=== PATIENT | female | born 1980 | race Caucasian/White ===

== ENCOUNTER 2018-09-11 01:06 | Outpatient (CLI) | payer BC, SELFPAY ==
--- NOTE | 2018-09-11 16:08 | DI.MAMMO_ITS ---
SYMPTOM/DIAGNOSIS: SCREENING, Z12.31, HEALTH MAINTENANCE, Z00.8, BASELINE MAMMOGRAMS: Mammograms were interpreted according to the usual protocol including computer analysis with CAD system, tomosynthesis and C view imaging. This is a baseline examination. The breasts are composed of scattered fibroglandular densities, Breast density, Category B. No suspicious masses or suspicious microcalcifications are seen. IMPRESSION: Category 1B, negative mammogram. Yearly screening mammography is recommended. [facility] ASSESSMENT OF FINDINGS: Negative. Category 1. Patient will receive a letter notifying them of these results. BI-RADS category B. There are scattered areas of fibroglandular density.
== END 2018-09-11 01:26 ==
PROVIDERS: PCP Specialist/Technologist Athletic Trainer; Visit Provider Physician Assistant Medical
DX: Z12.31 Encounter for screening mammogram for malignant neoplasm of breast (principal)
CPT/HCPCS: 77063; 77067

== ENCOUNTER 2018-09-18 08:31 | Outpatient (REF) | payer BC, SELFPAY ==
[2018-09-18 22:14] LABS: ALT 29 U/L (12-78); AST 19 U/L (15-37); Albumin 3.9 g/dL (3.4-5.0); Alkaline Phosphatase 57 U/L (46-116); Anion Gap 9.5 mmol/L (3-11); BUN 11 mg/dL (7-18); Bilirubin, Total 0.3 mg/dL (0.2-1.0); CO2 24.5 mmol/L (21.0-32.0); CREATININE 0.86 mg/dL (0.55-1.02); Calcium 8.7 mg/dL (8.5-10.1); Chloride 104 mmol/L (98-107); Cholesterol 232 mg/dL (50-200); Glucose 95 mg/dL (70-100); HDL Cholesterol 41 mg/dL (40-60); LDL CHOLESTEROL 175 mg/dL (<100); Potassium 4.7 mmol/L (3.5-5.1); Sodium 138 mmol/L (136-145); Triglyceride 73 mg/dL (30-150)
[2018-09-20 09:29] LABS: HIV-1/2 Ag & Ab Screen Negative (NEGAT)
== END 2018-09-18 08:51 ==
LOC: NCHCN 08:31
PROVIDERS: PCP Specialist/Technologist Athletic Trainer; Visit Provider Physician Assistant Medical
DX: Z00.00 Encounter for general adult medical examination without abnormal findings (principal); Z13.228 Encounter for screening for other metabolic disorders; Z13.220 Encounter for screening for lipoid disorders; Z11.4 Encounter for screening for human immunodeficiency virus [HIV]
CPT/HCPCS: 80053; 80061; 83721; 87389

== ENCOUNTER 2018-10-03 00:49 | Outpatient (CLI) | payer BC, SELFPAY ==
--- NOTE | 2018-10-03 18:00 | SATEXT_ITS ---
Assessment: Shayy presents for nutritional counseling for hyperlipidemia. She reports that she has a fairly healthful diet, but she does like sweets and she states her portion sizes may be too large. She is physically active generally. She had been going to the gym on most days up until recently when she got out of the habit of it. She verbalizes that she would like start going to the gym again. She is 63 and 247 lbs which gives her a BMI of 41 kg/m2 consistent with class 3 obesity. Nutritional Diagnosis: Altered nutrition related laboratory value as evidenced by diagnosis of hyperlipidemia. Class 3 obesity as evidenced by BMI of 41 kg/m2. Intervention: Acknowledged her excellent efforts at eating healthfully and at being physically active. Discussed the importance of including the use of weights in a weight management physical activity program to help restore the muscle that is naturally lost with again. We also reviewed portion sizes of the healthy foods that she eats that would lead to weight reduction. We reviewed the DASH eating plan and how she can incorporate it into her daily life. We also talked about alternative foods for her sweet tooth which could also be consistent with a heart healthy nutrition therapy. Provided written materials. Monitoring and Evaluation: 1. Shayy will self monitor her progress and will evaluate her nutrition care plan and adjust as needed. 2. Shayy has my contact information and will follow up with me as needed with any questions or concerns regarding her nutrition therapy. Total time spent face to face: 40 minutes Thank you for the referral.
== END 2018-10-03 01:09 ==
PROVIDERS: PCP Specialist/Technologist Athletic Trainer; Visit Provider Dietitian, Registered
DX: E78.5 Hyperlipidemia, unspecified (principal); Z71.3 Dietary counseling and surveillance
CPT/HCPCS: 97802

== ENCOUNTER 2019-09-09 15:01 | Outpatient (REF) | payer BC, SELFPAY ==
[2019-09-09 22:15] LABS: Anion Gap 11.6 mmol/L (3-11); BUN 10 mg/dL (7-18); CO2 25.4 mmol/L (21.0-32.0); CREATININE 0.78 mg/dL (0.55-1.02); Calcium 9.1 mg/dL (8.5-10.1); Chloride 103 mmol/L (98-107); Glucose 81 mg/dL (74-106); Potassium 4.6 mmol/L (3.5-5.1); Sodium 140 mmol/L (136-145)
[2019-09-09 22:39] LABS: Calculated LDL 199 mg/dL; Cholesterol 263 mg/dL (<200); HDL Cholesterol 38 mg/dL (40-60); Triglyceride 133 mg/dL (<150)
[2019-09-11 13:50] LABS: HIV-1/2 Ag & Ab Screen Negative (Negative)
== END 2019-09-09 15:21 ==
LOC: NCHCN 15:01
PROVIDERS: PCP Specialist/Technologist Athletic Trainer; Visit Provider Physician Assistant Medical
DX: Z00.00 Encounter for general adult medical examination without abnormal findings (principal); E78.5 Hyperlipidemia, unspecified; Z11.4 Encounter for screening for human immunodeficiency virus [HIV]
CPT/HCPCS: 80048; 80061; 87389

== ENCOUNTER 2019-10-08 00:34 | Outpatient (CLI) | payer BC, SELFPAY ==
--- NOTE | 2019-10-08 17:30 | DI.MAMMO_ITS ---
EXAM: MG MAMMO SCREENING CLINICAL HISTORY: SCREENING, HEALTH MAINTENANCE EXAM Z00.8. TECHNIQUE: Full field digital CC and MLO mammographic images were obtained with 3D tomosynthesis and utilizing computer aided detection (CAD). COMPARISON: 2017 FINDINGS: Breast Density - Category B - Scattered areas of fibroglandular density Masses/Architectural Distortion: None seen. Microcalcifications: No suspicious pleomorphic-type calcifications are seen. Skin Thickening/Nipple Retraction: None. Axilla: Unremarkable. IMPRESSION: 1. BI-RADS category 1, negative. No significant interval change with no specific features of maligna ncy noted. 2. Unless there is more urgent need, screening mammography is recommended, as per [employer] guidelines. BI-RADS Cat 1 - Negative Breast Density - Category B - Scattered areas of fibroglandular density A negative radiographic report should not delay biopsy if a dominant or clinically suspicious mass is present. Up to ten percent of cancers are not identified on mammography. A negative report may reinforce clinical impression. Adenosis and dense breasts may obscure an underlying neoplasm. False positive reports average 6 to 10%. Patient will receive a letter notifying them of these results.
== END 2019-10-08 00:54 ==
PROVIDERS: PCP Specialist/Technologist Athletic Trainer; Visit Provider Physician Assistant Medical
DX: Z00.00 Encounter for general adult medical examination without abnormal findings (principal); Z12.31 Encounter for screening mammogram for malignant neoplasm of breast
CPT/HCPCS: 77063; 77067

== ENCOUNTER 2019-12-19 08:14 | Outpatient (REF) | payer BC, SELFPAY ==
[2019-12-19 21:04] LABS: ALT 30 U/L (14-59); AST 21 U/L (15-37); Albumin 3.9 g/dL (3.4-5.0); Alkaline Phosphatase 55 U/L (46-116); Anion Gap 11.3 mmol/L (3-11); BUN 9 mg/dL (7-18); Bilirubin, Total 0.6 mg/dL (0.2-1.0); CO2 24.7 mmol/L (21.0-32.0); CREATININE 0.89 mg/dL (0.55-1.02); Calcium 8.2 mg/dL (8.5-10.1); Calculated LDL 116 mg/dL (<100); Chloride 103 mmol/L (98-107); Cholesterol 173 mg/dL (<200); Glucose 84 mg/dL (74-106); HDL Cholesterol 33 mg/dL (40-60); Potassium 4.5 mmol/L (3.5-5.1); Sodium 139 mmol/L (136-145); Triglyceride 120 mg/dL (<150)
== END 2019-12-19 08:34 ==
LOC: NCHCN 08:14
PROVIDERS: PCP Specialist/Technologist Athletic Trainer; Visit Provider Physician Assistant Medical
DX: E78.5 Hyperlipidemia, unspecified (principal)
CPT/HCPCS: 80053; 80061

== ENCOUNTER 2020-10-27 15:13 | Outpatient (REF) | payer BC, SELFPAY ==
--- NOTE | 2020-10-27 09:30 | PAPFT_PTH ---
PATIENT: Shayy Bruner LOC: [facility]#:[id number] AGE/SX: 40/F ROOM: RE10/27/[address]: Corrie Julian : 1980 BED: DIS: 10/27/2020 SPEC #: [id number] RECD: 10/27/20 17:52 STATUS: FERN REBrooke #: [id number] RANDY: 10/27/20 09:[address]: Corrie Julian DEPT: [facility] Cytology RECD BY: Deanna Florez ENTERED: 10/27/20 17:53 SP TYPE: PAPFT OTHR DR: Renny Patel Tissues: 1 - CX/ENDOCX FOR PAP SMEARS Procedures: PAP THIN PREP/[facility] Screening HPV DNA PROBE Comments: [id number]
[2020-10-27 17:36] LABS: ALT 33 U/L (14-59); AST 17 U/L (15-37); Albumin 3.9 g/dL (3.4-5.0); Alkaline Phosphatase 54 U/L (46-116); Anion Gap 10.1 mmol/L (3-11); BUN 7 mg/dL (7-18); Bilirubin, Total 0.3 mg/dL (0.2-1.0); CO2 25.9 mmol/L (21.0-32.0); CREATININE 0.8 mg/dL (0.55-1.02); Chloride 104 mmol/L (98-107); Glucose 79 mg/dL (74-106); Potassium 4.5 mmol/L (3.5-5.1); Sodium 140 mmol/L (136-145); Total Protein 8.2 g/dL (6.4-8.2)
[2020-10-27 17:55] LABS: Calculated LDL 118 mg/dL (<100); Cholesterol 178 mg/dL (<200); HDL Cholesterol 41 mg/dL (40-60); Triglyceride 99 mg/dL (<150)
[2020-10-28 10:34] LABS: HIV-1/2 Ag & Ab Screen Negative (Negative)
[2020-10-29 15:05] LABS: Chlamydia Result Negative (Negative); GC Result Negative (Negative)
== END 2020-10-27 15:14 | disposition home or self-care (01) ==
LOC: NCHCN 15:13
PROVIDERS: PCP Specialist/Technologist Athletic Trainer; Visit Provider Physician Assistant Medical
DX: E78.5 Hyperlipidemia, unspecified (principal); Z11.4 Encounter for screening for human immunodeficiency virus [HIV]; Z12.4 Encounter for screening for malignant neoplasm of cervix; Z11.51 Encounter for screening for human papillomavirus (HPV); Z11.3 Encounter for screening for infections with a predominantly sexual mode of transmission
CPT/HCPCS: 80053; 80061; 87389; 87491; 87591; 88142; 87624

== ENCOUNTER 2021-06-06 14:40 | Outpatient (REF) | payer BC, SELFPAY ==
[2021-06-06 20:31] LABS: Abs Immature Grans 0.01 10^3/uL (0.0-0.06); Absolute Basophil Count 0.03 10^3/uL (0.0-0.2); Absolute Eosinophil Count 0.13 10^3/uL (0.0-0.7); Absolute Monocyte Count 0.48 10^3/uL (0.1-0.8); Absolute Neutrophil Count 4.23 10^3/uL (1.2-6.7); Basophils % 0.4; Eosinophils % 1.9; HGB 13.3 g/dL (11.2-15.7); Immature Grans % 0.1; Lymphocytes % 26.9; MCH 28.2 pg (27.0-33.0); MCHC 33.3 % (32.0-36.0); MCV 84.9 fL (80-95); MPV 9.2 fL (8.0-11.0); Monocytes % 7.2; Neutrophils % 63.5; Nucleated RBC 0 %; Platelet Count 421 10^3/uL (130-400); RBC 4.71 10^6/uL (3.93-5.22); RDW 11.9 % (11.7-14.6); RDW-SD 36.3 fL; WBC 6.68 10^3/uL (4.4-10.8)
[2021-06-06 20:49] LABS: ALT 26 U/L (14-59); AST 18 U/L (15-37); Albumin 3.9 g/dL (3.4-5.0); Alkaline Phosphatase 61 U/L (46-116); BUN 7 mg/dL (7-18); Bilirubin, Total 0.4 mg/dL (0.2-1.0); CREATININE 0.8 mg/dL (0.55-1.02); Calcium 8.7 mg/dL (8.5-10.1); Chloride 105 mmol/L (98-107); Glucose 90 mg/dL (74-106); Potassium 4.5 mmol/L (3.5-5.1); Sodium 140 mmol/L (136-145); Total Protein 8.3 g/dL (6.4-8.2)
== END 2021-06-06 14:41 | disposition home or self-care (01) ==
LOC: NCHCN 14:40
PROVIDERS: PCP Specialist/Technologist Athletic Trainer; Referring Provider Physician Assistant Medical; Visit Provider Physician Assistant Medical
DX: R10.9 Unspecified abdominal pain (principal)
CPT/HCPCS: 80053; 85025

== ENCOUNTER 2021-11-07 10:12 | Outpatient (REF) | payer BC, SELFPAY ==
[2021-11-07 14:40] LABS: ALT 24 U/L (14-59); AST 18 U/L (15-37); Albumin 3.9 g/dL (3.4-5.0); Alkaline Phosphatase 61 U/L (46-116); Anion Gap 9.8 mmol/L (3-11); BUN 10 mg/dL (7-18); Bilirubin, Total 0.2 mg/dL (0.2-1.0); CO2 25.2 mmol/L (21.0-32.0); CREATININE 0.8 mg/dL (0.55-1.02); Calcium 8.7 mg/dL (8.5-10.1); Calculated LDL 88 mg/dL (<100); Chloride 105 mmol/L (98-107); Cholesterol 152 mg/dL (<200); Glucose 88 mg/dL (74-106); HDL Cholesterol 43 mg/dL (40-60); Potassium 4.4 mmol/L (3.5-5.1); Sodium 140 mmol/L (136-145); Total Protein 7.9 g/dL (6.4-8.2); Triglyceride 106 mg/dL (<150)
== END 2021-11-07 10:13 | disposition home or self-care (01) ==
LOC: NCHCN 10:12
PROVIDERS: PCP Specialist/Technologist Athletic Trainer; Visit Provider Physician Assistant Medical
DX: E78.5 Hyperlipidemia, unspecified (principal)
CPT/HCPCS: 80053; 80061

== ENCOUNTER 2022-12-15 16:26 | Outpatient (REF) | payer BC, SELFPAY ==
[2022-12-15 19:24] LABS: Hemoglobin A1C 5.7 % (<5.7)
[2022-12-15 20:41] LABS: ALT 21 U/L (14-59); AST 21 U/L (15-37); Albumin 3.9 g/dL (3.4-5.0); Alkaline Phosphatase 61 U/L (46-116); Anion Gap 5.5 mmol/L (3-11); BUN 10 mg/dL (7-18); Bilirubin, Total 0.4 mg/dL (0.2-1.0); CO2 27.5 mmol/L (21.0-32.0); CREATININE 0.9 mg/dL (0.55-1.02); Calculated LDL 104 mg/dL (<100); Chloride 102 mmol/L (98-107); Cholesterol 171 mg/dL (<200); Estimated GFR 80.84 (mL/min/1.73m2); Glucose 87 mg/dL (74-106); HDL Cholesterol 43 mg/dL (40-60); Potassium 4.3 mmol/L (3.5-5.1); Sodium 135 mmol/L (136-145); TSH (W/Ref FT4) 1.52 uIU/mL (0.36-3.74); Total Protein 8.2 g/dL (6.4-8.2); Triglyceride 122 mg/dL (<150)
== END 2022-12-15 16:27 | disposition home or self-care (01) ==
LOC: NCHCN 16:26
PROVIDERS: PCP Specialist/Technologist Athletic Trainer; Visit Provider Physician Assistant Medical
DX: Z00.8 Encounter for other general examination (principal); E78.5 Hyperlipidemia, unspecified
CPT/HCPCS: 80053; 80061; 83036; 84443

== ENCOUNTER 2023-12-28 18:03 | Outpatient (REF) | payer BC, SELFPAY ==
[2023-12-28 17:14] LABS: Hemoglobin A1C 5.9 % (<5.7)
[2023-12-28 17:17] LABS: ALT 21 U/L (14-59); AST 16 U/L (15-37); Albumin 3.8 g/dL (3.4-5.0); Alkaline Phosphatase 86 U/L (46-116); Anion Gap 8.9 mmol/L (3-11); BUN 11 mg/dL (7-18); Bilirubin, Total 0.3 mg/dL (0.2-1.0); CO2 27.1 mmol/L (21.0-32.0); CREATININE 0.9 mg/dL (0.55-1.02); Calcium 8.7 mg/dL (8.5-10.1); Calculated LDL 97 mg/dL (<100); Chloride 105 mmol/L (98-107); Cholesterol 166 mg/dL (<200); Estimated GFR 80.34 (mL/min/1.73m2); Glucose 93 mg/dL (74-106); HDL Cholesterol 46 mg/dL (40-60); Potassium 4.5 mmol/L (3.5-5.1); Sodium 141 mmol/L (136-145); Total Protein 8.3 g/dL (6.4-8.2); Triglyceride 115 mg/dL (<150)
== END 2023-12-28 18:04 | disposition home or self-care (01) ==
LOC: NCHCN 18:03
PROVIDERS: PCP Specialist/Technologist Athletic Trainer; Referring Provider Physician Assistant Medical; Visit Provider Physician Assistant Medical
DX: R73.03 Prediabetes (principal); E78.5 Hyperlipidemia, unspecified
CPT/HCPCS: 80053; 80061; 83036

== ENCOUNTER 2025-03-03 18:04 | Outpatient (REF) | payer BC, SELFPAY ==
[2025-03-03 17:30] LABS: Hemoglobin A1C 5.7 % (<5.7)
[2025-03-03 18:11] LABS: ALT 24 U/L (14-59); AST 23 U/L (15-37); Albumin 3.8 g/dL (3.4-5.0); Alkaline Phosphatase 64 U/L (46-116); Anion Gap 9.9 mmol/L (3-11); BUN 9 mg/dL (7-18); Bilirubin, Total 0.4 mg/dL (0.2-1.0); CO2 25.1 mmol/L (21.0-32.0); CREATININE 0.9 mg/dL (0.55-1.02); Calcium 8.5 mg/dL (8.5-10.1); Calculated LDL 99 mg/dL (<100); Chloride 104 mmol/L (98-107); Cholesterol 160 mg/dL (<200); Estimated GFR 79.85 (mL/min/1.73m2); Glucose 101 mg/dL (74-106); HDL Cholesterol 39 mg/dL (>or=50); Potassium 3.9 mmol/L (3.5-5.1); Sodium 139 mmol/L (136-145); Total Protein 7.6 g/dL (6.4-8.2); Triglyceride 114 mg/dL (<150)
== END 2025-03-03 18:05 | disposition home or self-care (01) ==
LOC: NCHCN 18:04
PROVIDERS: PCP Specialist/Technologist Athletic Trainer; Visit Provider Physician Assistant Medical
DX: R73.03 Prediabetes (principal)
CPT/HCPCS: 80053; 80061; 83036